=== PATIENT | female | born 1995 ===

== ENCOUNTER 2017-09-11 18:40 | Emergency (ER) | payer MEDICAID ==
[2017-09-11 18:41] VITALS: BMI 34.7
[2017-09-11 18:50] VITALS: BP 118/81; PULSE 87; RESP 18; TEMP 98.5; O2SAT 98
--- NOTE | 2017-09-11 19:18 | C.PDOC ---
History Of Present Illness 22 y/o female presents to the emergency room complaining of a subjective fever for 2-3 days. Associated with cough, congestion, runny nose, and generalized bodyaches. No sick contacts. Patient is a non-smoker. Denies any nausea, vomiting, or diarrhea. HPI: Influenza Time Seen by Provider: 09/11/17 19:05 Chief Complaint: Flu-like Symptoms Chief Complaint (Provider): Flu-like Symptoms History Per: Patient Exam Limitations: no limitations Onset/Duration Of Symptoms: Days (x2) Symptoms include: bodyaches, cough, nasal congestion Risk factors for flu complications: No: adult > 65 years, child < 5 years Past Medical History Reviewed: Historical Data, Nursing Documentation, Vital Signs Vital Signs: Last Vital Signs Temp 98.5 F 09/11/17 18:47 Pulse 87 09/11/17 18:47 Resp 18 09/11/17 18:47 BP 118/81 09/11/17 18:47 Pulse Ox 98 09/11/17 18:47 - Medical History PMH: No Chronic Diseases Surgical History: Appendectomy, Family History: States: Unknown Family Hx - Social History Hx Tobacco Use: No Hx Alcohol Use: No Hx Substance Use: No - Immunization History Hx Tetanus Toxoid Vaccination: No Hx Influenza Vaccination: No Hx Pneumococcal Vaccination: No Review Of Systems Constitutional: Positive for: Fever, Other (Bodyaches) ENT: Positive for: Nose Discharge, Nose Congestion Respiratory: Positive for: Cough Gastrointestinal: Negative for: Nausea, Vomiting, Diarrhea Physical Exam - Physical Exam Appears: No Acute Distress Skin: No Rash Head: Atraumatic, Normacephalic Eye(s): bilateral: PERRL, EOMI Nose: Discharge (nasal congestion noted) Oral Mucosa: Moist Neck: Supple Chest: No Tenderness Cardiovascular: Rhythm Regular, No Murmur Respiratory: No Rales, No Rhonchi, No Wheezing, Other (Clear to auscultation bilaterally) Gastrointestinal/Abdominal: Soft, No Tenderness, No Distention Neurological/Psych: Other (Alert, no gross focal deficit) Medical Decision Making Medical Decision Making: Impression: Flu-like symptoms Plan: Will discharge patient with Tamiflu prescription Patient is medically stable for d/c home. Lungs clear on exam, no respiratory distress. Vital signs stable. Advised to follow up with the clinic. - ECG O2 Sat by Pulse Oximetry: 98 (RA) Pulse Ox Interpretation: Normal Disposition Counseled Patient/Family Regarding: Diagnosis, Need For Followup, Rx Given - Disposition Referrals: [facility] [Outside] Disposition: HOME/ ROUTINE Disposition Time: 19:15 Condition: GOOD Additional Instructions: Baring Tamiflu segn lo recetado, reposo en cama aumentado, roseann ms lquidos. Baring Advil (lo mismo que el ibuprofeno) para el dolor o la fiebre. Seguimiento en la clnica mdica la prxima semana. Please take Tamiflu as prescribed, Increased bed rest, drink more fluids. Take Advil (same as ibuprofen) for pain or fever. Follow up in medical clinic next week. 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 - Scribe Statement The provider has reviewed the documentation as recorded by the Scribe (Rola Zapata) All medical record entries made by the Scribe were at my direction and personally dictated by me. I have reviewed the chart and agree that the record accurately reflects my personal performance of the history, physical exam, medical decision making, and the department course for this patient. I have also personally directed, reviewed, and agree with the discharge instructions and disposition.
== END 2017-09-11 19:30 | disposition home or self-care (01) ==
LOC: C.ER 18:40
DX: J11.1 Influenza due to unidentified influenza virus with other respiratory manifestations (principal)

== ENCOUNTER 2017-09-16 03:19 | Emergency (ER) | payer MEDICAID ==
[2017-09-16 03:19] VITALS: BMI 34.7
[2017-09-16 03:42] VITALS: O2SAT 100
[2017-09-16] MEDS ORDERED: Albuterol-Ipratrop 3 mg / 0.5 (3 ml) UD IH STA (03:43)
[2017-09-16] MEDS ORDERED: Albuterol 0.083% Inhal Sol (2.5 mg/3 mL) UD INH STA (03:43)
[2017-09-16] MEDS ORDERED: Albuterol 0.083% Inhal Sol (2.5 mg/3 mL) UD ONE (04:16)
[2017-09-16] MEDS ORDERED: Albuterol-Ipratrop 3 mg / 0.5 (3 ml) UD ONE (04:17)
[2017-09-16 04:29] LABS: BARBITURATES, UR NEGATIVE (NEGATIVE); OPIATES, UR NEGATIVE (NEGATIVE); PHENCYCLIDINE, UR NEGATIVE (NEGATIVE)
[2017-09-16 04:30] LABS: BENZODIAZEPINES, UR POSITIVE (NEGATIVE)
--- NOTE | 2017-09-16 05:02 | C.PDOC ---
History Of Present Illness Patient was out drinking alcohol and smoking hookah when she started feeling SOB and wheezing. Patient was seen in [facility] ED 5 days ago for flu like symptoms and was d/c home on Tamiflu. Time Seen by Provider: 09/16/17 03:31 Chief Complaint (Nursing): Medical Clearance History Per: Patient Past Medical History Reviewed: Historical Data, Nursing Documentation, Vital Signs Vital Signs: Last Vital Signs Temp 97.5 F L 09/16/17 03:26 Pulse 70 09/16/17 03:26 Resp 21 09/16/17 03:26 BP 95/70 L 09/16/17 03:26 Pulse Ox 100 09/16/17 03:26 - Medical History PMH: Asthma Surgical History: Appendectomy, Family History: States: Unknown Family Hx - Social History Hx Tobacco Use: No Hx Alcohol Use: No Hx Substance Use: No - Immunization History Hx Tetanus Toxoid Vaccination: No Hx Influenza Vaccination: No Hx Pneumococcal Vaccination: No Review Of Systems Except As Marked, All Systems Reviewed And Found Negative. Physical Exam - Physical Exam Appears: Well, Non-toxic, No Acute Distress Skin: Normal Color, Warm, No Rash Head: Atraumatic, Normacephalic Eye(s): bilateral: Normal Inspection Throat: Normal, No Erythema Neck: Normal, Normal ROM, Supple Chest: Symmetrical, No Tenderness Cardiovascular: Rhythm Regular Respiratory: No Accessory Muscle Use, Wheezing (b/l) Gastrointestinal/Abdominal: Normal Exam, Soft, No Tenderness Extremity: Normal ROM, No Tenderness, No Swelling Neurological/Psych: Oriented x3, Normal Speech, Normal Cognition ED Course And Treatment O2 Sat by Pulse Oximetry: 100 - Radiology CXR: Interpreted by Me CXR Interpretation: Yes: No Acute Disease Progress Note: Patient was treated with Duoneb and Albuterol neb with imporovement. CXR was negative. Patient is stable to be d/c home with PMD follow up. Disposition - Disposition Disposition: HOME/ ROUTINE Disposition Time: 05:04 Condition: IMPROVED Additional Instructions: Follow up with your PMD within 1-2 days. Return to ED if feel worse. Prescriptions: predniSONE [predniSONE Tab] 2 tab PO DAILY #8 tab Albuterol HFA [Ventolin HFA 90 mcg/actuation (8 g)] 1 puff IH .Q4-6H #1 inhaler Instructions: Asthma in Adults - Clinical Impression Clinical Impression: Asthma exacerbation
[2017-09-16 05:17] VITALS: BP 111/72; PULSE 102; TEMP 98.3
[2017-09-16 05:31] VITALS: RESP 21
--- NOTE | 2017-09-16 08:59 | RAD ---
HISTORY: SOB COMPARISON: No prior. FINDINGS: LUNGS: No active pulmonary disease. PLEURA: No significant pleural effusion identified, no pneumothorax apparent. CARDIOVASCULAR: Normal. OSSEOUS STRUCTURES: No significant abnormalities. VISUALIZED UPPER ABDOMEN: Normal. OTHER FINDINGS: None. IMPRESSION: No active disease.
== END 2017-09-16 05:31 | disposition home or self-care (01) ==
LOC: C.ER 03:19
DX: J45.901 Unspecified asthma with (acute) exacerbation (principal)
CPT/HCPCS: 71045; 94640; 99284; G0480

== ENCOUNTER 2018-07-22 13:24 | Emergency (ER) | payer OTHER ==
[2018-07-22 13:25] VITALS: BMI 34.7
[2018-07-22 13:46] VITALS: BP 118/75; PULSE 105; RESP 16; TEMP 98.2; O2SAT 98
--- NOTE | 2018-07-22 13:50 | C.PDOC ---
History Of Present Illness 23 year old female presents to the ED for evaluation of nasal congestion and sore throat x 3 days. Patient reports occasional dry cough. Denies fever. Denies trying any medications. NASAL CONGESTION, SORE THROAT X 3 DAYS. OCC DRY COUGH. NO FEVER. NO MEDS TRIED EXAM NARD HEENT +CLEAR RHINORRHEA; THROAT NO ERYTHEMA, SWELL, EXUDATE LUNGS CTA B/L NO W/R/R Time Seen by Provider: 07/22/18 13:40 Chief Complaint (Nursing): Flu-like Symptoms History Per: Patient History/Exam Limitations: no limitations Onset/Duration Of Symptoms: Days (3) Current Symptoms Are (Timing): Still Present Associated Symptoms: Sore Throat, Cough, Nasal Congestion. denies: Fever, Sputum Additional History Per: Patient Past Medical History Reviewed: Historical Data, Nursing Documentation, Vital Signs Vital Signs: Last Vital Signs Temp 98.2 F 07/22/18 13:31 Pulse 105 H 07/22/18 13:31 Resp 16 07/22/18 13:31 BP 118/75 07/22/18 13:35 Pulse Ox 98 07/22/18 13:31 - Medical History PMH: Asthma Surgical History: Appendectomy, Family History: States: Unknown Family Hx - Social History Hx Tobacco Use: No Hx Alcohol Use: No Hx Substance Use: No - Immunization History Hx Tetanus Toxoid Vaccination: No Hx Influenza Vaccination: No Hx Pneumococcal Vaccination: No Review Of Systems Constitutional: Positive for: Fever ENT: Positive for: Nose Congestion, Throat Pain Respiratory: Positive for: Cough. Negative for: Sputum Physical Exam - Physical Exam Appears: Non-toxic, No Acute Distress Skin: Normal Color, Warm, Dry Head: Atraumatic, Normacephalic Eye(s): bilateral: Normal Inspection Ear(s): Bilateral: Normal Nose: Other (clear rhinorrhea ) Throat: Normal, No Erythema, No Exudate, No Drooling, No Other (swelling ) Neck: Supple Chest: Symmetrical, No Deformity, No Tenderness Cardiovascular: Rhythm Regular, No Murmur Respiratory: Normal Breath Sounds, No Rales, No Rhonchi, No Wheezing, Other (clear to auscultation bilaterally ) Extremity: Normal ROM, Capillary Refill (less than 2 seconds ) Neurological/Psych: Oriented x3, Normal Speech, Normal Cognition ED Course And Treatment O2 Sat by Pulse Oximetry: 98 (on RA) Pulse Ox Interpretation: Normal Disposition Counseled Patient/Family Regarding: Diagnosis, Need For Followup, Rx Given - Disposition Referrals: [facility] [Outside] [facility] [Outside] Disposition: HOME/ ROUTINE Disposition Time: 13:49 Condition: GOOD Prescriptions: Ibuprofen [Motrin] 600 mg PO Q6 #30 tab Pseudoephedrine HCl [Sudafed 24 Hour] 240 mg PO DAILY PRN #1 unit PRN Reason: Sinus Symptoms Instructions: Viral Upper Respiratory Infection, Adult (DC) Forms: [employer] (Cymro), Work Excuse Print Language: UKRAINIAN - Clinical Impression Clinical Impression: URI (upper respiratory infection) - Scribe Statement The provider has reviewed the documentation as recorded by the Scribe (Opal Sampson) Provider Attestation: All medical record entries made by the Scribe were at my direction and personally dictated by me. I have reviewed the chart and agree that the record accurately reflects my personal performance of the history, physical exam, medical decision making, and the department course for this patient. I have also personally directed, reviewed, and agree with the discharge instructions and disposition.
== END 2018-07-22 14:00 | disposition home or self-care (01) ==
LOC: C.ER 13:24
DX: J06.9 Acute upper respiratory infection, unspecified (principal)